=== PATIENT | male | born 1960 | race Caucasian/White ===

== ENCOUNTER 2021-02-05 19:53 | Inpatient (IN) | payer MEDICAID ==
[~2021-02-05] VITALS: Ht 177.8 cm; Wt 71.7 kg
[~2021-02-05 19:53] MED LIST: LORA0.5T PO; RISP1TAB98 PO; ZIPR20CA2 IM
[2021-02-05 22:45] LABS: MEAN CORPUSCULAR VOLUME 91.3 FL (78-98)
[2021-02-05 22:46] LABS: HEMATOCRIT 41.7 % (42.0-52.0); HEMOGLOBIN 13.9 g/dl (14.0-17.9); MEAN CORPUSCULAR HEMOGLOBIN 30.4 PG (27.0-31.0); MEAN CORPUSCULAR HGB CONC 33.3 g/dL (33.0-36.5); MEAN PLATELET VOLUME 7.8 FL (7.4-10.4); PLATELET COUNT 221 X10'3 (140-440); RED BLOOD COUNT 4.57 X10'6 (4.70-6.10)
[2021-02-05 22:55] LABS: ALANINE AMINOTRANSFERASE 18 U/L (12-78); ALBUMIN 4.1 G/DL (3.4-5.0); ALBUMIN/GLOBULIN RATIO 1.5 (1.1-1.5); ALKALINE PHOSPHATASE 79 IU/L (46-116); ANION GAP 11 (8-16); ASPARTATE AMINO TRANSFERASE 17 U/L (10-37); BILIRUBIN,TOTAL 0.4 MG/DL (0.1-1.0); BLOOD UREA NITROGEN 9 MG/DL (7-18); BUN/CREATININE RATIO 7.3 (5.4-32.0); CALCIUM 8.5 MG/DL (8.5-10.1); CHLORIDE 109 MMOL/L (99-107); CREATININE 1.24 MG/DL (0.60-1.10); GLUCOSE 93 MG/DL (70-104); POTASSIUM 4.2 MMOL/L (3.5-5.1); SODIUM 145 MMOL/L (135-145); TOTAL CARBON DIOXIDE 25.1 MMOL/L (24-32); TOTAL PROTEIN 6.8 G/DL (6.4-8.2); eGFR 59 ML/MIN
[2021-02-05 23:06] LABS: ETHANOL < 0.010 GM/DL (0.0-0.010)
[2021-02-05 23:17] LABS: EOSINOPHILS % (MANUAL) 5 % (0-6); LYMPHOCYTES % (MANUAL) 44 % (21-51); MONOCYTES % (MANUAL) 10 % (2-12); NEUTROPHILS % (MANUAL) 41 % (42-75); PLATELET ESTIMATE NORMAL; TOTAL CELLS COUNTED 100
--- NOTE | 2021-02-06 01:30 | NUR ---
Pt's , Lyndsey, called to give list of medications pt takes. She gave pt's doses to the best of her knowledge but notes that pt is adamant about taking medications on his own. There is question as to whether pt takes his medications as directed by his physician. noted that patient's low heart rate is not new.
[2021-02-06 01:32] LABS: URINE AMPHETAMINE SCREEN NEGATIVE (Neg); URINE BARBITUATE SCREEN NEGATIVE (Neg); URINE BENZODIAZEPINES SCREEN NEGATIVE (Neg); URINE CANNABINOID SCREEN POSITIVE (Neg); URINE COCAINE SCREEN NEGATIVE (Neg); URINE METHADONE SCREEN NEGATIVE (Neg); URINE OPIATE SCREEN NEGATIVE (Neg); URINE PHENCYCLIDINE SCREEN NEGATIVE (Neg)
[2021-02-06 01:34] LABS: CLARITY,URINE CLEAR (Clear); COLOR,URINE YELLOW (Yellow); GLUCOSE, URINE NEGATIVE (Neg); KETONES,URINE NEGATIVE (Neg); LEUKOCYTE ESTERASE ,URINE NEGATIVE (Neg); NITRITES, URINE NEGATIVE (Neg); OCCULT BLOOD,URINE NEGATIVE (Neg); PROTEIN,URINE NEGATIVE (Neg); UROBILINOGEN,URINE 0.2 E.U/dL (0.2-1.0)
[2021-02-06 01:37] LABS: UA COLLECTION TYPE STRAIGHT CATH
[2021-02-06] MEDS ORDERED: OMEP40CA21 PO (03:43)
[2021-02-06] MEDS ORDERED: HYDR-3686 PO (03:43)
[2021-02-06] MEDS ORDERED: SERT25TA PO (03:43)
[2021-02-06] MEDS ORDERED: PROP20TA6 PO (03:43)
[2021-02-06] MEDS ORDERED: ATOR20TA PO (03:43)
[2021-02-06] MEDS ORDERED: LORA2TAB96 PO (03:43)
[2021-02-06] MEDS ORDERED: HALO2TAB PO (03:43)
[2021-02-06] MEDS ORDERED: BUPR150T8 PO (03:43)
--- NOTE | 2021-02-06 04:30 | NUR ---
PT MOVED FROM BED 2 TO BED 13.
--- NOTE | 2021-02-06 04:31 | NUR ---
pt resting comfortably. equal rise and fall of chest.
--- NOTE | 2021-02-06 07:00 | NUR ---
PT SLEEPING IN NO NOTED DISTRESS
--- NOTE | 2021-02-06 08:20 | NUR ---
SAFETY BREAKFAST TRAY DELIVERED TO BEDSIDE, PT IS SLEEPING
[2021-02-06] MEDS: LORazepam 1 MG tablet PO SCH (12:38)
[2021-02-06] MEDS: buPROPion SR 150mg tablet PO SCH (12:39)
[2021-02-06] MEDS: hydrOXYzine 25 MG tablet PO SCH ×3 (12:39→21:21)
[2021-02-06] MEDS: haloperidol 1mg tablet PO SCH (12:39)
[2021-02-06] MEDS: atorvastatin 20mg tablet PO SCH (12:39)
[2021-02-06] MEDS: pantoprazole 40mg Tablet.DR PO SCH (12:39)
[2021-02-06] MEDS: propranolol 10mg tablet PO SCH (12:39)
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
[2021-02-06] MEDS: sertraline 50mg tablet PO SCH (12:40)
--- NOTE | 2021-02-06 20:56 | NUR ---
The patient moved to bed 23 in the ER overflow. He was cooperative with the move. He gave minimal eye contact. His replies were appropriate to what was asked. Speech was monotone. He was able to state the year but stated the month was December. He reports voices telling him "to walk off and and kill myself and to kill someone else" He denied visual hallucinations. He reports his anxiety is high.
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
--- NOTE | 2021-02-06 21:09 | NUR ---
Discussed with Dr. Sierra the patient's pyschotic symptoms. Orders received.
[2021-02-06] MEDS: haloperidol 5mg tablet PO SCH (21:21)
--- NOTE | 2021-02-07 00:01 | NUR ---
The patient appears to be sleeping
--- NOTE | 2021-02-07 02:39 | NUR ---
The patient appears to be sleeping
--- NOTE | 2021-02-07 04:05 | NUR ---
The patient appears to be sleeping
--- NOTE | 2021-02-07 06:31 | NUR ---
Assumed care of patient, pt. sleeping at this time. RR even and unlabored
--- NOTE | 2021-02-07 07:41 | NUR ---
Pt. continues to sleep at this time, laying on rt side, rr even and unlabored.
[2021-02-07] MEDS: LORazepam 1 MG tablet PO SCH (08:20)
[2021-02-07] MEDS: sertraline 50mg tablet PO SCH (08:21)
[2021-02-07] MEDS: pantoprazole 40mg Tablet.DR PO SCH (08:21)
[2021-02-07] MEDS: atorvastatin 20mg tablet PO SCH (08:21)
[2021-02-07] MEDS: hydrOXYzine 25 MG tablet PO SCH ×3 (08:21→20:01)
[2021-02-07] MEDS: buPROPion SR 150mg tablet PO SCH (08:21)
[2021-02-07] MEDS: propranolol 10mg tablet PO SCH (08:21)
[2021-02-07] MEDS: haloperidol 1mg tablet PO SCH (08:21)
--- NOTE | 2021-02-07 08:34 | NUR ---
Pt. ate part of his breakfast and was compliant with his medications, he returns to lay back down with eyes closed.
--- NOTE | 2021-02-07 09:32 | NUR ---
Pt. sleeping on his left side at this time, rr even and unlabored.
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
--- NOTE | 2021-02-07 10:45 | NUR ---
Pt. sleeping at this time, laying on his rt. side, rr even and unlabored.
--- NOTE | 2021-02-07 11:30 | NUR ---
[facility] [phone]
--- NOTE | 2021-02-07 11:36 | NUR ---
Pt. continues to sleep at this time, laying on his right side, rr even and unlabored.
--- NOTE | 2021-02-07 12:10 | NUR ---
Pt. was able to ambulate independently to the , he returned immediately back to bed. He does exhibit some generalized weakness.
--- NOTE | 2021-02-07 12:41 | NUR ---
Pt. continues to sleep at this time, rr are even and unlabored.
--- NOTE | 2021-02-07 14:00 | NUR ---
Pt. continues to sleep at this time, laying on rt. side rr even and unlabored.
--- NOTE | 2021-02-07 15:02 | NUR ---
Pt. continues to sleep at this time, laying on his rt. side, rr even and unlabored. It is noted that he gets up only to eat and go to the BR.
--- NOTE | 2021-02-07 16:05 | NUR ---
Pt. continues to sleep at this time, laying on his left side, rr even and unlabored.
--- NOTE | 2021-02-07 17:04 | NUR ---
Pt. continues to lay in bed at this time, he makes ocassional body adjustments.
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
--- NOTE | 2021-02-07 19:38 | NUR ---
The patient has been isolating on his bed. His affect his flat and he gives no eye contact during one to one conversation. His speech is minimal and monotone. He is very disheveled. He was asked about continued auditory hallucinations and he stated "They ed subsided a little" He denies thoughts to harm himself or others. He did state he feels his thoughts are "scrambled"
[2021-02-07] MEDS: haloperidol 5mg tablet PO SCH (20:01)
--- NOTE | 2021-02-07 20:11 | NUR ---
The patient is resting on his bed
--- NOTE | 2021-02-07 22:29 | NUR ---
The patient appears to be sleeping
--- NOTE | 2021-02-08 01:03 | NUR ---
The patient appears to be sleeping
--- NOTE | 2021-02-08 02:50 | NUR ---
The patient appears to be sleeping
--- NOTE | 2021-02-08 05:46 | NUR ---
The patient is currently resting on his bed quietly but for the majority of the past several hours he has been responding to internal stimuli and swearing and having converstations with people who are not there.
--- NOTE | 2021-02-08 06:52 | NUR ---
Received Pt in bed sleeping w/o distress.
[2021-02-08] MEDS: sertraline 50mg tablet PO SCH (08:32)
[2021-02-08] MEDS: pantoprazole 40mg Tablet.DR PO SCH (08:32)
[2021-02-08] MEDS: LORazepam 1 MG tablet PO SCH (08:32)
[2021-02-08] MEDS: hydrOXYzine 25 MG tablet PO SCH ×3 (08:32→20:27)
[2021-02-08] MEDS: propranolol 10mg tablet PO SCH (08:32)
[2021-02-08] MEDS: atorvastatin 20mg tablet PO SCH (08:32)
[2021-02-08] MEDS: haloperidol 1mg tablet PO SCH ×2 (08:34→20:26)
[2021-02-08] MEDS: buPROPion SR 150mg tablet PO SCH (08:40)
--- NOTE | 2021-02-08 09:00 | NUR ---
Pt woke and took AM meds cooperatively. Pt ate breakfast well and talked to himself on and off. Pt asked if he could leave, and was informed of his 5150 hold. Pt became mildly irritated and returned to bed.
--- NOTE | 2021-02-08 12:14 | NUR ---
Pt accepted by [facility] and Pt discharged and transfered to [facility] by staff. Pt cooperative and pleasant.
[2021-02-08 12:15] VITALS: BP 136/109
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
[2021-02-08] MEDS ORDERED: mag hydrox/Alum hydrox/simeth 30ml oral suspension PO PRN (12:40)
[2021-02-08] MEDS ORDERED: acetaminophen 325mg tablet PO PRN (12:40)
[2021-02-08] MEDS ORDERED: magnesium hydroxide 30ml (MOM) UD suspension PO PRN (12:40)
[2021-02-08] MEDS ORDERED: NICOTINE POLACRILEX 2 MG LOZENGE BC PRN (12:40)
[2021-02-08] MEDS ORDERED: loperamide 2mg capsule PO PRN (12:40)
[2021-02-08] MEDS ORDERED: nicotine 21mg patch - 24 hr TD ONE (13:25)
[2021-02-08] MEDS ORDERED: HYDROcodone/acetaminophen 10/325mg tab PO PRN (15:43)
[2021-02-08 20:00] VITALS: BP 137/74
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
[2021-02-09 07:23] VITALS: BP 129/92
[2021-02-09] MEDS: sertraline 50mg tablet PO SCH (08:01)
[2021-02-09] MEDS: buPROPion SR 150mg tablet PO SCH (08:02)
[2021-02-09] MEDS: hydrOXYzine 25 MG tablet PO SCH ×3 (08:02→21:37)
[2021-02-09] MEDS: pantoprazole 40mg Tablet.DR PO SCH (08:02)
[2021-02-09] MEDS: haloperidol 1mg tablet PO SCH ×2 (08:02→21:38)
[2021-02-09] MEDS: atorvastatin 20mg tablet PO SCH (08:02)
[2021-02-09] MEDS: HYDROcodone/acetaminophen 10/325mg tab PO PRN ×4 (08:03→22:06)
[2021-02-09] MEDS: nicotine 21mg patch - 24 hr TD SCH (08:05)
[2021-02-09 08:11] LABS: CHOL/HDL RATIO 3.7 (0.00-4.99); CHOLESTEROL 190 MG/DL (0-200); HDL CHOLESTEROL 52 MG/DL (35-60); LDL CHOLESTEROL 105 MG/DL (50-100); TRIGLYCERIDES 107 MG/DL (20-135)
[2021-02-09 08:37] LABS: HEMOGLOBIN A1C 5.2 % (4.5-6.2)
[2021-02-09] MEDS: acetaminophen 325mg tablet PO PRN (10:00)
[2021-02-09] MEDS: LORazepam 1 MG tablet PO PRN ×3 (10:36→21:37)
--- NOTE | 2021-02-09 15:00 | NUR ---
RN attempted to reach out to pt.'s regarding his Butrans but was unable to reach her. RN left message with call back instructions. Provider notified. Pt. is to continue with [place] 10/325 po q4 hrs prn.
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
[2021-02-09 19:00] VITALS: BP 134/90
[2021-02-09] MEDS: traZODone 50mg tablet PO PRN (21:37)
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
[2021-02-10 08:00] VITALS: BP 110/78
[2021-02-10] MEDS: haloperidol 1mg tablet PO SCH ×2 (08:04→20:45)
[2021-02-10] MEDS: sertraline 50mg tablet PO SCH (08:04)
[2021-02-10] MEDS: hydrOXYzine 25 MG tablet PO SCH ×3 (08:04→20:45)
[2021-02-10] MEDS: atorvastatin 20mg tablet PO SCH (08:04)
[2021-02-10] MEDS: pantoprazole 40mg Tablet.DR PO SCH (08:04)
[2021-02-10] MEDS: buPROPion SR 150mg tablet PO SCH (08:04)
[2021-02-10] MEDS: HYDROcodone/acetaminophen 10/325mg tab PO PRN (08:24)
[2021-02-10] MEDS: LORazepam 1 MG tablet PO PRN ×3 (08:24→20:49)
[2021-02-10] MEDS: nicotine 21mg patch - 24 hr TD SCH (08:32)
[2021-02-10] MEDS ORDERED: BUPRENORPHINE (Butrans) 10MCG PATCH.TDWK (7-day patch) TD SCH (08:55)
[2021-02-10] MEDS ORDERED: BUPRENORPHINE (Butrans) 10MCG PATCH.TDWK (7-day patch) TOP SCH (08:56)
[2021-02-10] MEDS: acetaminophen 325mg tablet PO PRN (10:11)
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
[2021-02-10 19:00] VITALS: BP 108/82
[2021-02-10] MEDS: traZODone 50mg tablet PO PRN (20:44)
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
[2021-02-11] MEDS: buPROPion SR 150mg tablet PO SCH (07:50)
[2021-02-11] MEDS: haloperidol 1mg tablet PO SCH (07:50)
[2021-02-11] MEDS: hydrOXYzine 25 MG tablet PO SCH (07:50)
[2021-02-11] MEDS: atorvastatin 20mg tablet PO SCH (07:50)
[2021-02-11] MEDS: pantoprazole 40mg Tablet.DR PO SCH (07:50)
[2021-02-11] MEDS: nicotine 21mg patch - 24 hr TD SCH (07:51)
[2021-02-11] MEDS: sertraline 50mg tablet PO SCH (07:51)
[2021-02-11 08:00] VITALS: BP 107/97
[2021-02-11] MEDS ORDERED: LORA2TAB96 PO (12:00)
[2021-02-11] MEDS ORDERED: HALO2TAB PO (12:00)
[2021-02-11] MEDS ORDERED: BUPR-344 PO (12:00)
[2021-02-11] MEDS ORDERED: HYDR50TA65 PO (12:00)
[2021-02-11] MEDS ORDERED: SERT-434 PO (12:00)
--- NOTE | 2021-02-11 13:58 | NUR ---
Discharge Note: Patient discharged to home/ self-care at 12:35pm. Escorted off unit by tech and picked up by . All personal property inventoried and returned to pt. Discharge instructions provided including smoking cessation information. Calm/ cooperative on discharge. No s/sx acute distress noted.
== END 2021-02-11 12:33 | disposition home or self-care (01) | DRG 750 ==
LOC: ER 19:53 → ED HOLD 02-08 10:21 → ADULT MH 02-08 12:34
PROVIDERS: ADMIT Psychiatry & Neurology Psychiatry; ATTEND Psychiatry & Neurology Psychiatry
DX: F20.9 Schizophrenia, unspecified (principal); E78.5 Hyperlipidemia, unspecified; F12.90 Cannabis use, unspecified, uncomplicated; F17.210 Nicotine dependence, cigarettes, uncomplicated; F41.9 Anxiety disorder, unspecified; M54.9 Dorsalgia, unspecified; G89.29 Other chronic pain; I25.10 Atherosclerotic heart disease of native coronary artery without angina pectoris; K21.9 Gastro-esophageal reflux disease without esophagitis; Z79.899 Other long term (current) drug therapy; Z88.0 Allergy status to penicillin
CPT/HCPCS: 36415; 70450; 80053; 80061; 80305; 80320; 81003; 83036; 84443; 85007; 85025; 87081; 87635; 99285; C9803; Q0177